=== PATIENT | female | born 1945 | race Caucasian/White ===

== ENCOUNTER → 2016-06-19 | Outpatient (CLI) | payer OTHER ==
[~2016-06-19] VITALS: Ht 162.6 cm; Wt 64.4 kg
[~2016-06-19] MED LIST: AMLO10TA2 PO; BREO1INH3 INH; IRON240T PO; LEVO125T3 PO; LIDOCAINE 2% INJ 100 MG/5 ML SDV (FOR ANES.) As Ordered ONE; LISI10TA2 PO; MULT1TAB10 PO; NS 1,000 ML IV ONE; PROPOFOL 200 MG/20 ML VIAL As Ordered ONE; VITA1CAP25 PO
--- NOTE | 2016-06-19 11:36 | ROOR ---
Patient Name: Yanci Salinas Procedure Date: 06/19/2016 11:23 AM Date of : 1945 Age: 70 Room: [facility], [facility]IN [facility] Gender: Female Note Status: Finalized Procedure: Upper GI endoscopy + Biopsies Indications: Iron deficiency anemia, Heme positive stool Providers: Milton Sam MD Referring MD: Shlomo Elizondo MD Requesting Provider: Medicines: Monitored Anesthesia Care Complications: No immediate complications. Procedure: Pre-Anesthesia Assessment: - The heart rate, respiratory rate, oxygen saturations, blood pressure, adequacy of pulmonary ventilation, and response to care were monitored throughout the procedure. The Endoscope was introduced through the mouth, and advanced to the second part of duodenum. The upper GI endoscopy was accomplished without difficulty. The patient tolerated the procedure well. Findings: The Z-line was regular and was found 35 cm from the incisors. Evidence of a gastric bypass was found. A gastric pouch with a small size was found. The staple line appeared intact. The gastrojejunal anastomosis was characterized by healthy appearing mucosa. Biopsies for histology were taken with a cold forceps for evaluation of celiac disease. The exam was otherwise without abnormality. Impression: - Z-line regular, 35 cm from the incisors. - Gastric bypass with a small-sized pouch and intact staple line. Gastrojejunal anastomosis characterized by healthy appearing mucosa. Biopsied. - The examination was otherwise normal. Recommendation: - Patient has a contact number available for emergencies. The signs and symptoms of potential delayed complications were discussed with the patient. Return to normal activities tomorrow. Written discharge instructions were provided to the patient. - Resume previous diet. - Discharge patient to home. - Continue present medications. - Await pathology results. - Telephone GI clinic for pathology results in 1 week. - Return to referring physician. - The findings and recommendations were discussed with the patient's family. - Check Portal Online for Path Results.([email or web address] Milton Sam MD Milton Sam MD 06/19/2016 11:36:06 AM This report has been signed electronically. Number of Addenda: 0 Note Initiated On: 06/19/2016 11:23 AM Estimated Blood Loss: Estimated blood loss: none.
--- NOTE | 2016-06-19 12:16 | ROOR ---
Patient Name: Yanci Salinas Procedure Date: 06/19/2016 11:23 AM Date of : 1945 Age: 70 Room: [facility] Gender: Female Note Status: Finalized Procedure: Colonoscopy to Cecum + Cold Snare Polypectomy + Hemoclips Indications: Heme positive stool, Iron deficiency anemia Providers: Milton Sam MD Referring MD: Shlomo Elizondo MD Requesting Provider: Medicines: Monitored Anesthesia Care Complications: No immediate complications. Procedure: Pre-Anesthesia Assessment: - The heart rate, respiratory rate, oxygen saturations, blood pressure, adequacy of pulmonary ventilation, and response to care were monitored throughout the procedure. The Colonoscope was introduced through the anus and advanced to the cecum, identified by appendiceal orifice and ileocecal valve. The colonoscopy was performed without difficulty. The patient tolerated the procedure well. The quality of the bowel preparation was excellent. Findings: The perianal and digital rectal examinations were normal. Non-bleeding internal hemorrhoids were found during retroflexion. The hemorrhoids were small and Grade I (internal hemorrhoids that do not prolapse). Scattered small-mouthed diverticula were found in the recto-sigmoid colon, sigmoid colon and descending colon. A medium polyp was found at 40 cm proximal to the anus. The polyp was sessile. The polyp was removed with a cold snare. Resection and retrieval were complete. To prevent bleeding after the polypectomy, two hemostatic clips were successfully placed (MR conditional). There was no bleeding at the end of the procedure. A medium polyp was found in the proximal ascending colon. The polyp was sessile. The polyp was removed with a cold snare. Resection and retrieval were complete. To prevent bleeding after the polypectomy, two hemostatic clips were successfully placed (MR conditional). There was no bleeding at the end of the procedure. Multiple sessile polyps were found in the mid transverse colon. The polyps were large in size. These polyps were removed with a cold snare. Resection and retrieval were complete. To prevent bleeding after the polypectomy, three hemostatic clips were successfully placed (MR conditional). There was no bleeding at the end of the procedure. A small polyp was found in the hepatic flexure. The polyp was sessile. The polyp was removed with a cold snare. Resection was complete, but the polyp tissue was not retrieved. The exam was otherwise without abnormality on direct and retroflexion views. Impression: - Non-bleeding internal hemorrhoids. - Diverticulosis in the recto-sigmoid colon, in the sigmoid colon and in the descending colon. - One medium polyp at 40 cm proximal to the anus, removed with a cold snare. Resected and retrieved. Clips (MR conditional) were placed. - One medium polyp in the proximal ascending colon, removed with a cold snare. Resected and retrieved. Clips (MR conditional) were placed. - Multiple large polyps in the mid transverse colon, removed with a cold snare. Resected and retrieved. Clips (MR conditional) were placed. - One small polyp at the hepatic flexure, removed with a cold snare. Complete resection. Polyp tissue not retrieved. - The examination was otherwise normal on direct and retroflexion views. - The exam was otherwise normal to the cecum. Recommendation: - Patient has a contact number available for emergencies. The signs and symptoms of potential delayed complications were discussed with the patient. Return to normal activities tomorrow. Written discharge instructions were provided to the patient. - High fiber diet. - Discharge patient to home. - Continue present medications. - Await pathology results. - Telephone GI clinic for pathology results in 1 week. - Repeat colonoscopy in 1 year for surveillance based on pathology results. - Return to referring physician. - Check Portal Online for Path Results.([email or web address] - The findings and recommendations were discussed with the patient's family. Milton Sam MD Milton Sam MD 06/19/2016 12:16:35 PM This report has been signed electronically. Number of Addenda: 0 Note Initiated On: 06/19/2016 11:23 AM Estimated Blood Loss: Estimated blood loss: none.
[2016-06-19 12:40] VITALS: BP 129/77
== END | disposition home or self-care (01) ==
LOC: M OPP 10:47
PROVIDERS: ATTEND Internal Medicine Gastroenterology
DX: D50.9 Iron deficiency anemia, unspecified (principal); K64.0 First degree hemorrhoids; K57.30 Diverticulosis of large intestine without perforation or abscess without bleeding; D12.5 Benign neoplasm of sigmoid colon; D12.2 Benign neoplasm of ascending colon; D12.3 Benign neoplasm of transverse colon; J44.9 Chronic obstructive pulmonary disease, unspecified; I10 Essential (primary) hypertension; J45.909 Unspecified asthma, uncomplicated; E03.9 Hypothyroidism, unspecified; Z98.0 Intestinal bypass and anastomosis status; Z87.891 Personal history of nicotine dependence; Z79.899 Other long term (current) drug therapy

== ENCOUNTER → 2016-07-11 | Outpatient (REF) | payer OTHER ==
[~2016-07-11] MED LIST changes: -LIDOCAINE 2% INJ 100 MG/5 ML SDV (FOR ANES.) As Ordered ONE; -NS 1,000 ML IV ONE; -PROPOFOL 200 MG/20 ML VIAL As Ordered ONE
[2016-07-11 13:19] LABS: ANION GAP 8 MEQ/L (8-16); BLOOD UREA NITROGEN 16 MG/DL (7-18); CALCIUM LEVEL 8.9 MG/DL (8.8-10.2); CARBON DIOXIDE LEVEL 30 MEQ/L (21-32); CHLORIDE LEVEL 101 MEQ/L (98-107); CREATININE FOR GFR 0.68 MG/DL (0.55-1.02); GLOMERULAR FILTRATION RATE > 60.0 (>39); GLUCOSE, FASTING 75 MG/DL (83-110); PERCENT SATURATION 65.6 % (13.2-37.4); SODIUM LEVEL 139 MEQ/L (136-145); TOTAL IRON BINDING CAPACITY 227 UG/DL (250-450)
[2016-07-11 13:23] LABS: BASO % 0.6 % (0.0-1.0); EOS # 0.3 K/mm3 (0.0-0.50); EOS % 4.2 % (0.0-3.0); LARGE UNSTAINED CELL # 0.1 K/mm3 (0.0-0.4); LARGE UNSTAINED CELL % 1.7 % (0.0-4.0); LYMPH # 1.8 K/mm3 (1.5-4.5); LYMPH % 24.4 % (24.0-44.0); MEAN CORPUSCULAR HEMOGLOBIN 31.5 pg (27.0-33.0); MEAN CORPUSCULAR HGB CONC 32.4 g/dl (32.0-36.5); MEAN CORPUSCULAR VOLUME 97.4 fl (80.0-96.0); MONO # 0.3 K/mm3 (0.0-0.8); NEUTROPHILS # 4.7 K/mm3 (1.8-7.7); NEUTROPHILS % 65.1 % (36.0-66.0); PLATELET COUNT, AUTOMATED 275 k/mm3 (150-450); RED CELL DISTRIBUTION WIDTH 12.4 % (11.5-14.5); RETIC HEMOGLOBIN CONTENT CHr 33.7 PG (24-36); RETICULOCYTE ABSOLUTE ADVIA212 87 x10(9)/L (17-77); WHITE BLOOD COUNT 7.2 K/mm3 (4.0-10.0)
== END ==
LOC: M SFHCPLAZ 10:04
PROVIDERS: ATTEND Family Medicine
DX: D50.9 Iron deficiency anemia, unspecified (principal); I10 Essential (primary) hypertension; E55.9 Vitamin D deficiency, unspecified

== ENCOUNTER → 2016-07-23 | Outpatient (REF) | payer OTHER ==
[2016-07-23 12:11] LABS: REASON FOR REVIEW COMPREHENSIVE REVIEW
[2016-07-23 12:44] LABS: FOLATE 23.9 NG/ML
[2016-07-23 13:09] LABS: ALBUMIN 2.8 GM/DL (3.2-5.2); ALBUMIN/GLOBULIN RATIO 0.97 (1.00-1.93); BILIRUBIN,DIRECT 0.2 MG/DL (0.0-0.2); BILIRUBIN,TOTAL 0.5 MG/DL (0.2-1.0); FREE T4 1.28 NG/DL (0.76-1.46); TOTAL PROTEIN 5.7 GM/DL (6.4-8.2)
== END ==
LOC: M SFHCPLAZ 09:49
PROVIDERS: ATTEND Family Medicine
DX: E03.9 Hypothyroidism, unspecified (principal); D75.89 Other specified diseases of blood and blood-forming organs; Z98.890 Other specified postprocedural states

== ENCOUNTER → 2017-07-31 | Outpatient (REF) | payer OTHER ==
[2017-08-01 14:23] LABS: GAMMA GLUTAMYLTRANSPEPTIDASE 75 U/L (5-55)
== END ==
LOC: M LAB REF 13:21
DX: R94.5 Abnormal results of liver function studies (principal)

== ENCOUNTER → 2017-10-31 | Outpatient (CLI) | payer OTHER ==
[2017-10-31 17:34] LABS: ALBUMIN 2.9 GM/DL (3.2-5.2); ALBUMIN/GLOBULIN RATIO 0.91 (1.00-1.93); ALKALINE PHOSPHATASE 152 U/L (45-117); ALT/SGPT 70 U/L (12-78); ANION GAP 6 MEQ/L (8-16); AST/SGOT 43 U/L (7-37); BILIRUBIN,DIRECT 0.2 MG/DL (0.0-0.2); BILIRUBIN,TOTAL 0.4 MG/DL (0.2-1.0); BLOOD UREA NITROGEN 23 MG/DL (7-18); CALCIUM LEVEL 8.7 MG/DL (8.8-10.2); CARBON DIOXIDE LEVEL 29 MEQ/L (21-32); CHLORIDE LEVEL 110 MEQ/L (98-107); CREATININE FOR GFR 0.47 MG/DL (0.55-1.30); GLOMERULAR FILTRATION RATE > 60.0 (>39); GLUCOSE, FASTING 75 MG/DL (70-100); POTASSIUM SERUM 4.9 MEQ/L (3.5-5.1); SODIUM LEVEL 145 MEQ/L (136-145); TOTAL PROTEIN 6.1 GM/DL (6.4-8.2)
== END ==
LOC: M WUC 15:24
DX: R94.5 Abnormal results of liver function studies (principal); E03.9 Hypothyroidism, unspecified; I10 Essential (primary) hypertension
CPT/HCPCS: 84443

== ENCOUNTER → 2018-02-11 | Outpatient (REF) | payer OTHER ==
[~2018-02-11] MED LIST changes: -AMLO10TA2 PO; +AMLO10TA5 PO; -LEVO125T3 PO; +LEVO125T4 PO
== END ==
LOC: M LAB REF 11:50
PROVIDERS: ATTEND Nurse Practitioner Family
DX: E03.9 Hypothyroidism, unspecified (principal)

== ENCOUNTER 2019-07-05 12:18 | Emergency (ER) | payer BC, OTHER ==
[~2019-07-05] VITALS: Ht 162.6 cm; Wt 65.1 kg
[~2019-07-05 12:18] MED LIST changes: +LISI10TA15 PO; -LISI10TA2 PO
[2019-07-05 14:17] LABS: BASO % 0.6 % (0.0-1.0); EOS # 0.2 10^3/uL (0.0-0.5); EOS % 2.2 % (0.0-3.0); HEMATOCRIT 34.5 % (36.0-47.0); HEMOGLOBIN 11.1 g/dl (12.0-15.5); LYMPH # 1.7 10^3/uL (1.5-5.0); LYMPH % 25.9 % (24.0-44.0); MEAN CORPUSCULAR HGB CONC 32.2 g/dl (32.0-36.5); MEAN CORPUSCULAR VOLUME 102.7 fl (80.0-96.0); MONO # 0.5 10^3/uL (0.0-0.8); MONO % 6.8 % (0.0-5.0); NEUTROPHILS # 4.3 10^3/uL (1.5-8.5); NEUTROPHILS % 64.2 % (36.0-66.0); PLATELET COUNT, AUTOMATED 288 10^3/uL (150-450); RED BLOOD COUNT 3.36 10^6/uL (4.00-5.40); WHITE BLOOD COUNT 6.7 10^3/uL (4.0-10.0)
--- NOTE | 2019-07-05 14:23 | REP ---
Clinical: Lower extremity edema . Comparison: None . Technique: PA and lateral. Findings: The mediastinum and cardiac silhouette are normal. The lung erickson demonstrate chronic-appearing interstitial changes without acute consolidation, effusion, or pneumothorax. The skeletal structures are intact and normal. Impression: 1. No acute cardiopulmonary process. Electronically Signed by Gregory Figueroa MD 07/05/2019 02:14 P
[2019-07-05 14:47] LABS: BLOOD UREA NITROGEN 23 MG/DL (7-18); CALCIUM LEVEL 8.1 MG/DL (8.8-10.2); CARBON DIOXIDE LEVEL 27 MEQ/L (21-32); CHLORIDE LEVEL 104 MEQ/L (98-107); CK-MB VALUE MASS 1.3 NG/ML (<3.6); CPK CREATINE PHOSPHOKINASE 47 U/L (26-192); CREATININE FOR GFR 0.73 MG/DL (0.55-1.30); FREE T4 0.91 NG/DL (0.76-1.46); GLOMERULAR FILTRATION RATE > 60.0 (>39); GLUCOSE, FASTING 92 MG/DL (70-100); MB/CK RELATIVE INDEX 2.77 (< OR =4); NT-PRO BNP 128 PG/ML (<125); POTASSIUM SERUM 3.8 MEQ/L (3.5-5.1); SODIUM LEVEL 139 MEQ/L (136-145); TROPONIN I < 0.02 NG/ML (< 0.10)
--- NOTE | 2019-07-05 15:22 | ECGEPIP ---
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
[2019-07-05 15:43] VITALS: BP 136/75
--- NOTE | 2019-07-05 16:00 | REP ---
Clinical: Left lower extremity pain and swelling . Technique: Corbett scale and color Doppler evaluation using linear high frequency transducer. Findings: Ultrasound examination of the left lower extremity deep venous structures from the common femoral vein to the popliteal vein demonstrates normal compressibility flow and wave patterns in response to respiration and augmentation. There is no evidence for deep venous thrombosis. Impression: No evidence for deep venous thrombosis. Electronically Signed by Gregory Figueroa MD 07/05/2019 03:52 P
== END 2019-07-05 15:47 | disposition home or self-care (01) ==
LOC: M ED 12:18
DX: M79.89 Other specified soft tissue disorders (principal); L55.9 Sunburn, unspecified; I10 Essential (primary) hypertension; E78.00 Pure hypercholesterolemia, unspecified; J44.9 Chronic obstructive pulmonary disease, unspecified; E03.9 Hypothyroidism, unspecified; Z79.899 Other long term (current) drug therapy; Z98.84 Bariatric surgery status

== ENCOUNTER 2020-06-09 07:45 | Emergency (ER) | payer BC ==
[~2020-06-09] VITALS: Ht 162.6 cm; Wt 66.3 kg
[~2020-06-09 07:45] MED LIST changes: -AMLO10TA5 PO; +AMLO1TAB25 PO
[2020-06-09] MEDS ORDERED: POTA1TAB23 PO (08:06)
[2020-06-09] MEDS ORDERED: LEVO88TA3 PO (08:06)
--- NOTE | 2020-06-09 08:34 | REP ---
INDICATION: injury. COMPARISON: Comparison left hand radiographs are from June 28, 2005.. TECHNIQUE: Four views of the left wrist are obtained. FINDINGS: There is marked diffuse osteoporosis. A comminuted and somewhat impacted distal radial metaphyseal fracture is seen with apex volar angulation and minimal dorsal displacement. There is an associated slightly impacted fracture of the distal ulna. Vascular calcification is seen. No carpal fracture is observed. IMPRESSION: Affected and angulated fracture of the distal radial metaphysis. Associated minimally impacted fracture of the distal ulnar metaphysis. marked diffuse osteopenia. <Electronically signed by Toni Copeland > 06/09/20 [id number]
[2020-06-09] MEDS ORDERED: NS 1,000 ML IV SCH ×2 (10:00→15:10)
[2020-06-09] MEDS ORDERED: MORPHINE 2 MG/ML 1ML VIAL (J2270) IV ONE ×2 (10:00→15:25)
[2020-06-09] MEDS ORDERED: propofoL 200 MG/20 ML VIAL IV PRN (15:10)
[2020-06-09] MEDS ORDERED: ONDANSETRON 4MG/2ML VIAL IV ONE (15:10)
[2020-06-09] MEDS ORDERED: LIDOCAINE 1% MDV 20ML VIAL SC ONE (16:00)
[2020-06-09] MEDS ORDERED: MIRA3350 PO (16:36)
[2020-06-09] MEDS ORDERED: HYDR-3713 PO (16:36)
[2020-06-09 17:00] VITALS: BP 169/74
--- NOTE | 2020-06-09 17:26 | REP ---
INDICATION: fracture COMPARISON: 06/09/2020 at 8:03 a.m. TECHNIQUE: Multiple intraoperative fluoroscopic images using portable C-arm technique FINDINGS: Images demonstrate patient to be status post closed reduction and casting for comminuted distal radial fracture. Further evaluation is limited due to technique and cast material. Total fluoroscopic time 71 seconds. IMPRESSION: Status post satisfactory closed reduction period. <Electronically signed by Gregory Figueroa > 06/09/20 [id number]
--- NOTE | 2020-06-09 18:06 | ER ---
ER CONSULTATION DATE: 06/09/2020 TIME: 0330 p.m. CONSULTING SERVICE: Orthopedics. CONSULTING PHYSICIAN: Trent Romano MD. HISTORY OF PRESENT ILLNESS: This is a 74-year-old female who sustained a ground-level fall on the morning of 06/09/2020, while walking. The patient sustained a closed left distal radius fracture with mild comminution. She also sustained a superficial laceration to the volar aspect of her left wrist. She presented to [facility] for further evaluation and treatment. Orthopedic surgery was consulted for evaluation and treatment. PAST MEDICAL HISTORY: Hypertension. PAST SURGICAL HISTORY: 1. Gastric bypass. 2. Hysterectomy. ALLERGIES: Denies. CURRENT MEDICATIONS: 1. Beta-janelle. 2. Vitamin D. SOCIAL HISTORY: Social drinker. Non-IV drug user. Nonsmoker. REVIEW OF SYSTEMS: A 14-point review of systems was negative unless otherwise described in the HPI above. PHYSICAL EXAMINATION: Alert and oriented to person, time, and place. Left upper extremity the patient had an obvious deformity about the left distal radius with dorsal deformity appreciated of the wrist. She had a 1 cm x 5 mm volar laceration, which did not probe deep to the fascia, which was irrigated and debrided. She also had a superficial skin sloughing about the dorsal aspect of her left wrist. She had brisk capillary refill to the digits. She had 2+ radial and ulnar pulse. She had 5/5 motor strength to the musculature of the musculocutaneous, axillary, radial, median, and ulnar distributions. She had sensation intact to light touch to the musculocutaneous, axillary, radial, median, and ulnar nerve distributions. IMAGING DATA: X-rays of her left wrist demonstrate a distal radius fracture with dorsal displacement apex volar approximately 3 cm from the joint line. She had minimal comminution of the distal radius with likely extension into the intraarticular joint, likely intraarticular extension. She had loss of radial height and radial inclination. Post-reduction radiographs demonstrated yazdanism of radial height inclination and 0 degrees of volar tilt. IMPRESSION: A 74-year-old female with a reduced left distal radius fracture placed in a well-padded L&U splint with a three-point mold. PLAN: The patient sustained a left distal radius fracture that was closed with a volar laceration. Her volar laceration was cleaned by the emergency provider using normal saline and Betadine-soaked saline. The patient also sustained a shearing skin injury to the dorsal aspect of her left forearm, which was Steri-Striped. The patient's left distal radius was close reduced and placed in a well-padded sugar-tong splint using fluoroscopy. The patient was consented for the aforementioned procedure. The patient has a very nice reduction of the left distal radius with yazdanism of radial height, inclination, and 0 degrees of volar tilt. The patient will remain in the sugar-tong until she returns to the clinic on 06/20/2020, at [facility]. At that point in time, we will remove the elbow padding of the sugar-tong splint and over-wrap with fiberglass in order to maintain the reduction. She will remain in her over-wrapped splint for a total of six weeks or until radiographic clinical evidence of healing. The patient tolerated the procedure well and was more comfortable after the reduction. Of note, she did receive a hematoma block with 10 mL of Lidocaine. The patient will follow-up on 06/20/2020, at the [facility] and she will see myself, Trent Romano MD.
== END 2020-06-09 17:27 | disposition home or self-care (01) ==
LOC: M ED 07:45
DX: S52.502A Unspecified fracture of the lower end of left radius, initial encounter for closed fracture (principal); S52.602A Unspecified fracture of lower end of left ulna, initial encounter for closed fracture; W01.0XXA Fall on same level from slipping, tripping and stumbling without subsequent striking against object, initial encounter; Y92.014 Private driveway to single-family (private) house as the place of occurrence of the external cause; I10 Essential (primary) hypertension; J44.9 Chronic obstructive pulmonary disease, unspecified; E78.5 Hyperlipidemia, unspecified; E03.9 Hypothyroidism, unspecified; Z98.84 Bariatric surgery status; Z79.899 Other long term (current) drug therapy; Z79.890 Hormone replacement therapy
CPT/HCPCS: 25565; 73100; 73110; 93041; 94760; 96361; 96374; 96376; 99284; J2270; J2405

== ENCOUNTER → 2020-06-20 | Outpatient (CLI) | payer BC ==
[~2020-06-20] MED LIST changes: +HYDR-3713 PO; +LEVO88TA3 PO; +MIRA3350 PO; +POTA1TAB23 PO
--- NOTE | 2020-06-21 07:22 | REP ---
INDICATION: PAIN. COMPARISON: 06/09/2020 TECHNIQUE: AP, lateral, bilateral oblique views of the left wrist. FINDINGS: Fracture of the distal radial metaphysis is noted. Further evaluation is limited due to overlying cast material. IMPRESSION: Distal radial metaphyseal fracture noted. <Electronically signed by Gregory Figueroa > 06/21/20 0718
--- NOTE | 2020-06-21 07:39 | REP ---
INDICATION: PAIN. COMPARISON: 06/09/2020, 06/20/2020 TECHNIQUE: AP and lateral views of the left forearm FINDINGS: Evaluation is limited due to overlying cast material. Fracture of the distal radial and ulnar metaphyses suggested. IMPRESSION: Limited by overlying cast material. <Electronically signed by Gregory Figueroa > 06/21/20 0717
== END ==
LOC: M SOG 14:23
PROVIDERS: ATTEND Orthopaedic Surgery
DX: S52.502A Unspecified fracture of the lower end of left radius, initial encounter for closed fracture (principal); X58.XXXA Exposure to other specified factors, initial encounter; Y92.9 Unspecified place or not applicable; Y99.9 Unspecified external cause status; M25.532 Pain in left wrist

== ENCOUNTER → 2020-07-20 | Outpatient (CLI) | payer BC ==
--- NOTE | 2020-07-21 03:28 | REP ---
INDICATION: UNSP FX LOW END LT RAD, SUBS FOR CLOSED FX W ROUTINE HEAL. COMPARISON: 06/20/2020 TECHNIQUE: AP, lateral, bilateral oblique views of the left wrist FINDINGS: Comminuted intra-articular fracture of the distal radius and ulnar styloid fracture are again noted. Some elements of periosteal reaction and callus formation are identified suggesting healing process. Overlying soft tissue swelling noted. Underlying age-related degenerative changes noted throughout the rest of the examination. IMPRESSION: Continued evidence for comminuted intra-articular distal radius fracture and ulnar styloid fracture. Some element of healing suggested. <Electronically signed by Gregory Figueroa > 07/21/20 0322
--- NOTE | 2020-07-21 03:41 | REP ---
INDICATION: UNSP FX LOW END LT RAD, SUBS FOR CLOSED FX W ROUTINE HEAL. COMPARISON: 06/20/2020 TECHNIQUE: AP and lateral views of the left forearm FINDINGS: Nonacute fractures of the distal radial metaphysis and ulnar styloid demonstrate callus formation suggesting elements of healing. Osteopenia and degenerative changes to the remainder of the examination without further acute fracture or dislocation identified. IMPRESSION: Healing fractures of the distal radius and ulna. <Electronically signed by Gregory Figueroa > 07/21/20 [id number]
== END ==
LOC: M SOG 14:38
PROVIDERS: ATTEND Orthopaedic Surgery
DX: S52.502D Unspecified fracture of the lower end of left radius, subsequent encounter for closed fracture with routine healing (principal); Y92.9 Unspecified place or not applicable; Y93.9 Activity, unspecified; Y99.9 Unspecified external cause status

== ENCOUNTER → 2020-08-31 | Outpatient (CLI) | payer BC ==
--- NOTE | 2020-08-31 10:49 | REP ---
INDICATION: FX LOW END LEFT RADIUS. COMPARISON: 07/20/2020 as well as other prior exams. TECHNIQUE: Four views left wrist. FINDINGS: The previously noted comminuted intra-articular fracture of the distal radius demonstrates increased healing callus formation. There is no change in alignment. The distal ulnar fracture also demonstrates increased healing callus formation with no change in alignment. Mild scattered degenerative changes are again noted. There are vascular calcifications in the soft tissues. IMPRESSION: Advanced healing of distal radial and ulnar fractures, with increased healing callus formation compared to the prior study. No change in alignment. <Electronically signed by Lloyd Corbett > 08/31/20 1048
== END ==
LOC: M SOG 10:26
PROVIDERS: ATTEND Orthopaedic Surgery
DX: S52.502D Unspecified fracture of the lower end of left radius, subsequent encounter for closed fracture with routine healing (principal)

== ENCOUNTER → 2021-12-07 | Outpatient (CLI) | payer BC ==
[~2021-12-07] MED LIST changes: -LISI10TA15 PO; +LISI10TA24 PO
== END ==
LOC: M WUC 09:40
PROVIDERS: ATTEND Registered Nurse
DX: M47.819 Spondylosis without myelopathy or radiculopathy, site unspecified (principal)

== ENCOUNTER → 2022-02-26 | Outpatient (CLI) | payer BC | LOC: M WHC 09:18 | PROVIDERS: ATTEND Internal Medicine | DX: M85.851 Other specified disorders of bone density and structure, right thigh (principal); M85.852 Other specified disorders of bone density and structure, left thigh ==

== ENCOUNTER → 2023-04-03 | Outpatient (CLI) | payer BC ==
[2023-04-03 14:46] LABS: BASO # 0.1 10^3/uL (0.0-0.2); BASO % 0.6 % (0.0-1.0); EOS # 0.7 10^3/uL (0.0-0.5); EOS % 7.9 % (0.0-3.0); HEMATOCRIT 35.2 % (36.0-47.0); HEMOGLOBIN 10.9 g/dl (12.0-15.5); LYMPH # 3.2 10^3/uL (1.5-5.0); LYMPH % 35.6 % (24.0-44.0); MEAN CORPUSCULAR HEMOGLOBIN 30.7 pg (27.0-33.0); MEAN CORPUSCULAR VOLUME 99.2 fl (80.0-96.0); MONO # 0.6 10^3/uL (0.0-0.8); NEUTROPHILS # 4.3 10^3/uL (1.5-8.5); NEUTROPHILS % 48.7 % (36.0-66.0); PLATELET COUNT, AUTOMATED 287 10^3/uL (150-450); RED BLOOD COUNT 3.55 10^6/uL (4.00-5.40); WHITE BLOOD COUNT 8.9 10^3/uL (4.0-10.0)
[2023-04-03 15:12] LABS: IRON (FE) 53 UG/DL (50-170); PERCENT SATURATION 24.3 % (13.2-45.0); TOTAL IRON BINDING CAPACITY 218 UG/DL (250-425)
[2023-04-03 15:13] LABS: ALKALINE PHOSPHATASE 178 U/L (46-116); ALT/SGPT 67 U/L (7.0-40); AST/SGOT 53 U/L (<34); BILIRUBIN,TOTAL 0.3 MG/DL (0.3-1.2); BLOOD UREA NITROGEN 32 MG/DL (9-23); CALCIUM LEVEL 8.4 MG/DL (8.3-10.6); CARBON DIOXIDE LEVEL 26 MMOL/L (20-31); CHLORIDE LEVEL 106 MMOL/L (98-107); CREATININE FOR GFR 0.91 MG/DL (0.55-1.30); GLOMERULAR FILTRATION RATE > 60.0 (>39); GLUCOSE, FASTING 86 MG/DL (74-106); POTASSIUM SERUM 4.2 MMOL/L (3.5-5.1); SODIUM LEVEL 137 MMOL/L (136-145)
[2023-04-03 15:16] LABS: THYROXINE (T4) 5.3 UG/DL (4.5-10.9)
[2023-04-03 15:17] LABS: FREE THYROXINE INDEX 1.7 % (1.3-4.8); T UPTAKE 32.8 % (22.5-37.0); THYROID STIMULATING HORMONE 1.707 uIU/ML (0.55-4.78)
== END ==
LOC: M LAB 13:49
PROVIDERS: ATTEND Nurse Practitioner Family
DX: L29.9 Pruritus, unspecified (principal)

== ENCOUNTER → 2023-05-02 | Outpatient (REF) | payer BC | LOC: M SFHCPLAZ 08:41 | PROVIDERS: ATTEND Nurse Practitioner Family | DX: L30.8 Other specified dermatitis (principal) ==

== ENCOUNTER → 2023-09-11 | Outpatient (CLI) | payer BC | LOC: M WUC 15:30 | PROVIDERS: ATTEND Nurse Practitioner Family | DX: M25.512 Pain in left shoulder (principal); M54.50 Low back pain, unspecified; W01.10XA Fall on same level from slipping, tripping and stumbling with subsequent striking against unspecified object, initial encounter ==

== ENCOUNTER → 2023-12-24 | Outpatient (REF) | payer BC ==
[2023-12-24 14:26] LABS: PERCENT SATURATION 58.9 % (13.2-45.0)
== END ==
LOC: M LAB REF 13:26
PROVIDERS: ATTEND Physician Assistant Medical
DX: D50.9 Iron deficiency anemia, unspecified (principal)

== ENCOUNTER → 2024-06-30 | Outpatient (CLI) | payer BC | LOC: M WUC 13:30 | PROVIDERS: ATTEND Physician Assistant Medical | DX: M85.812 Other specified disorders of bone density and structure, left shoulder (principal) ==

== ENCOUNTER 2024-11-20 08:39 | Inpatient (IN) | payer MEDICARE, BC ==
[~2024-11-20] VITALS: Ht 162.6 cm; Wt 70.1 kg
[2024-11-20] MEDS ORDERED: MORPHINE 4 MG/ML 1 ML VIAL IV PRN (08:55)
[2024-11-20 09:15] LABS: BASO # 0.1 10^3/uL (0.0-0.2); BASO % 0.8 % (0.0-1.0); EOS # 1.3 10^3/uL (0.0-0.5); EOS % 12.7 % (0.0-3.0); LYMPH # 2.2 10^3/uL (1.5-5.0); LYMPH % 21.6 % (24.0-44.0); MONO # 1.0 10^3/uL (0.0-0.8); MONO % 10.2 % (2.0-8.0); NEUTROPHILS # 5.5 10^3/uL (1.5-8.5); NEUTROPHILS % 54.4 % (36.0-66.0); PLATELET COUNT, AUTOMATED 230 10^3/uL (150-450)
[2024-11-20 09:25] LABS: INR 0.93
[2024-11-20 09:40] LABS: ALT/SGPT 27.0 U/L (7.0-40); AST/SGOT 24.0 U/L (<34); CALCIUM LEVEL 8.0 MG/DL (8.3-10.6); CARBON DIOXIDE LEVEL 24.0 MMOL/L (20-31); CHLORIDE LEVEL 110.0 MMOL/L (98-107); CREATININE FOR GFR 0.71 MG/DL (0.55-1.30); GLOMERULAR FILTRATION RATE 86.4 (>39); POTASSIUM SERUM 3.5 MMOL/L (3.5-5.1); SODIUM LEVEL 143.0 MMOL/L (136-145)
[2024-11-20] MEDS ORDERED: LEVO75TA4 PO (10:27)
[2024-11-20] MEDS ORDERED: MULTTAB61 PO (10:27)
[2024-11-20] MEDS ORDERED: DIPH-448 PO (10:27)
[2024-11-20] MEDS ORDERED: HYDR12.55 PO (10:27)
[2024-11-20] MEDS ORDERED: DECA1CAP2 PO (10:27)
[2024-11-20] MEDS ORDERED: ALBU8.5H INH (10:27)
[2024-11-20] MEDS ORDERED: TRAZ-252 PO (10:27)
[2024-11-20] MEDS ORDERED: LEXA1TAB PO (10:27)
[2024-11-20] MEDS ORDERED: HOME MED LIST COMPLETE! XX SCH (10:30)
[2024-11-20] MEDS: LIDOCAINE 5% PATCH TD ONE (11:59)
[2024-11-20] MEDS: NS (Normal Saline) 0.9% 1,000 ML IV ONE (12:53)
[2024-11-20] MEDS: ACETAMINOPHEN *IV* 1,000 MG in IV 1 EA IV ONE (13:06)
[2024-11-20] MEDS: NS (Normal Saline) 0.9% 1,000 ML IV SCH (14:27)
[2024-11-20] MEDS: LIDOCAINE 5% PATCH TD STA (15:39)
[2024-11-20 17:13] VITALS: BP 143/74; TEMP 97.2; O2SAT 97
[2024-11-20] MEDS: MORPHINE 4 MG/ML 1 ML VIAL IV PRN ×2 (18:34→21:05)
[2024-11-20 20:00] VITALS: BP 125/83; TEMP 97.5; O2SAT 98
[2024-11-20] MEDS: traZODone 25MG PER 1/2 TABLET PO ONE (21:05)
[2024-11-21] VITALS (9 sets, daily range): BP systolic 90–142; BP diastolic 51–71; TEMP 96.4–98.8; O2SAT 89–94
[2024-11-21] MEDS: MORPHINE 4 MG/ML 1 ML VIAL IV ONE (05:10)
[2024-11-21] MEDS: LIDOCAINE 5% PATCH TD SCH (08:16)
[2024-11-21] MEDS ORDERED: ROCURONIUM BROMIDE 50MG/5ML VIAL As Ordered ONE (08:34)
[2024-11-21] MEDS ORDERED: LIDOCAINE 2% 100 MG/5 ML SDV (FOR ANES.) As Ordered ONE (08:35)
[2024-11-21 08:55] LABS: CALCIUM LEVEL 7.5 MG/DL (8.3-10.6); CARBON DIOXIDE LEVEL 24 MMOL/L (20-31); CHLORIDE LEVEL 110 MMOL/L (98-107); CREATININE FOR GFR 0.56 MG/DL (0.55-1.30); GLOMERULAR FILTRATION RATE > 90.0 (>39); MAGNESIUM LEVEL 1.9 MG/DL (1.8-2.4); POTASSIUM SERUM 3.3 MMOL/L (3.5-5.1); SODIUM LEVEL 146 MMOL/L (136-145)
[2024-11-21] MEDS ORDERED: dexAMETHasone 4 MG/ML 1 ML VIAL As Ordered ONE (10:44)
[2024-11-21] MEDS ORDERED: ONDANSETRON 4MG 2ML VIAL As Ordered ONE (10:44)
[2024-11-21] MEDS: TRANEXAMIC ACID 100 MG/ML 10ML VIAL As Ordered ONE (10:45)
[2024-11-21] MEDS ORDERED: HYDROmorphone HCL 2 MG/ML 1 ML VIAL As Ordered ONE (11:04)
[2024-11-21] MEDS ORDERED: ACETAMINOPHEN 1000MG/100ML IV BAG As Ordered ONE (11:05)
[2024-11-21] MEDS: HYDROMORPHONE HCL 0.5 MG/0.5 ML SYRINGE IV PRN (12:18)
[2024-11-21] MEDS: ONDANSETRON 4MG 2ML VIAL IV PRN (12:18)
[2024-11-21] MEDS ORDERED: IPRATROPIUM 0.5 MG/ALBUTEROL 2.5 MG INH SOL UD 3 ML NEB PRN (16:20)
[2024-11-21] MEDS: NS (Normal Saline) 0.9% 1,000 ML IV SCH (17:16)
[2024-11-21] MEDS: ceFAZolin SODIUM 2 GM in DEXTROSE 5% (D5W) ADV/MINI-BAG 50 ML IV SCH (17:16)
[2024-11-21] MEDS: KCL 10MEQ/100ML SWI (KRUN) 10 MEQ in IV 1 EA IV SCH (18:01)
[2024-11-21] MEDS: SYMBICORT 160/4.5MCG INHALER 6GM INH SCH (19:25)
[2024-11-21] MEDS: POTASSIUM CHLORIDE 10MEQ SR TABLET PO SCH (20:00)
[2024-11-21] MEDS: ENOXAPARIN 40 MG/0.4 ML SYRINGE (J1650 PER 10MG) SC SCH (20:00)
[2024-11-22] VITALS (13 sets, daily range): BP systolic 121–146; BP diastolic 64–78; TEMP 96.8–98.4; O2SAT 90–97
[2024-11-22] MEDS: LEVOTHYROXINE 75 MCG TABLET (0.075 MG) PO SCH (05:55)
[2024-11-22 07:11] LABS: CALCIUM LEVEL 7.3 MG/DL (8.3-10.6); CARBON DIOXIDE LEVEL 24.0 MMOL/L (20-31); CHLORIDE LEVEL 106.0 MMOL/L (98-107); CREATININE FOR GFR 0.65 MG/DL (0.55-1.30); GLOMERULAR FILTRATION RATE 89.5 (>39); MAGNESIUM LEVEL 1.8 MG/DL (1.8-2.4); POTASSIUM SERUM 3.6 MMOL/L (3.5-5.1); SODIUM LEVEL 140.0 MMOL/L (136-145)
[2024-11-22] MEDS: ESCITALOPRAM OXALATE 10 MG TABLET PO SCH (09:22)
[2024-11-22] MEDS: PERCOCET 5MG/325MG TAB PO PRN (15:59)
[2024-11-22] MEDS: traZODone 50 MG TAB PO PRN (20:31)
[2024-11-22 21:53] LABS: IRON (FE) 120.0 UG/DL (50-170); PERCENT SATURATION 53.1 % (13.2-45.0)
[2024-11-23 00:41] VITALS: BP 137/78; TEMP 97.2; O2SAT 96
[2024-11-23 03:46] VITALS: BP 135/77; TEMP 97.3; O2SAT 95
[2024-11-23 07:35] LABS: CALCIUM LEVEL 7.8 MG/DL (8.3-10.6); CARBON DIOXIDE LEVEL 25 MMOL/L (20-31); CHLORIDE LEVEL 107 MMOL/L (98-107); CREATININE FOR GFR 0.51 MG/DL (0.55-1.30); GLOMERULAR FILTRATION RATE > 90.0 (>39); MAGNESIUM LEVEL 1.9 MG/DL (1.8-2.4); POTASSIUM SERUM 3.8 MMOL/L (3.5-5.1); SODIUM LEVEL 142 MMOL/L (136-145)
[2024-11-23] MEDS: VITAMIN D 50,000 UNITS CAPSULE (ERGOCALCIFEROL 1.25MG) PO SCH (08:15)
[2024-11-23 12:00] VITALS: BP 130/74; TEMP 97.9; O2SAT 95
[2024-11-23] MEDS ORDERED: ECOT81TA5 PO (13:38)
== END 2024-11-23 14:30 | DRG 481 ==
LOC: EDBD 08:39 → M ED 08:39 → M ED INP 11:27 → M MSPAV 16:46
PROVIDERS: ADMIT Student in an Organized Health Care Education/Training Program; ATTEND Student in an Organized Health Care Education/Training Program
PROC: 0PSHXZZ Reposition Right Radius, External Approach (ICD-10-PCS; 2024-11-21)
PROC: 0QS606Z Reposition Right Upper Femur with Intramedullary Internal Fixation Device, Open Approach (ICD-10-PCS; principal; 2024-11-21 08:00)
PROC: 30233N1 Transfusion of Nonautologous Red Blood Cells into Peripheral Vein, Percutaneous Approach (ICD-10-PCS; 2024-11-22)
DX: S72.141A Displaced intertrochanteric fracture of right femur, initial encounter for closed fracture (principal); D62 Acute posthemorrhagic anemia; S52.501A Unspecified fracture of the lower end of right radius, initial encounter for closed fracture; I10 Essential (primary) hypertension; J44.9 Chronic obstructive pulmonary disease, unspecified; E03.9 Hypothyroidism, unspecified; M85.80 Other specified disorders of bone density and structure, unspecified site; E55.9 Vitamin D deficiency, unspecified; W18.30XA Fall on same level, unspecified, initial encounter; Y92.009 Unspecified place in unspecified non-institutional (private) residence as the place of occurrence of the external cause; Z98.41 Cataract extraction status, right eye; Z98.42 Cataract extraction status, left eye; Z98.84 Bariatric surgery status; Z79.890 Hormone replacement therapy; Z79.899 Other long term (current) drug therapy

== ENCOUNTER 2024-11-23 12:20 | Inpatient (IN) | payer MEDICARE, BC ==
[~2024-11-23] VITALS: Ht 162.6 cm; Wt 65.9 kg
[~2024-11-23 12:20] MED LIST changes: +ALBU8.5H INH; +DECA1CAP2 PO; +DIPH-448 PO; +HYDR12.55 PO; +LEVO75TA4 PO; +LEXA1TAB PO; +MULTTAB61 PO; +TRAZ-252 PO
[2024-11-23] MEDS ORDERED: ONDANSETRON 4MG ORAL DISINTEGRATING TAB PO PRN ×2 (12:40)
[2024-11-23] MEDS ORDERED: ALBUTEROL 90 MCG/ACT 8 GM HFA INHALER INH PRN (12:40)
[2024-11-23] MEDS ORDERED: SIMETHICONE 80MG CHEW TAB PO PRN (12:40)
[2024-11-23] MEDS: ACETAMINOPHEN 500 MG TAB PO SCH (13:00)
[2024-11-23] MEDS ORDERED: ECOT81TA5 PO (13:38)
[2024-11-23 14:41] VITALS: BP 125/60; TEMP 98.2; O2SAT 90
[2024-11-23 20:00] VITALS: BP 157/65; TEMP 97.5; O2SAT 94
[2024-11-23] MEDS: SYMBICORT 160/4.5MCG INHALER 6GM INH SCH (20:36)
[2024-11-23] MEDS: DOCUSATE SODIUM 100 MG CAPSULE PO SCH (20:45)
[2024-11-23] MEDS: traZODone 50 MG TAB PO SCH (20:45)
[2024-11-23] MEDS: SENNA 8.6 MG TAB PO SCH (20:45)
[2024-11-23] MEDS: POTASSIUM CHLORIDE 10MEQ SR TABLET PO SCH (20:46)
[2024-11-24 04:00] VITALS: BP 123/61; TEMP 97.5; O2SAT 93
[2024-11-24] MEDS: LEVOTHYROXINE 75 MCG TABLET (0.075 MG) PO SCH (05:18)
[2024-11-24 06:25] LABS: BASO # 0.1 10^3/uL (0.0-0.2); BASO % 0.5 % (0.0-1.0); EOS # 0.5 10^3/uL (0.0-0.5); EOS % 5.5 % (0.0-3.0); LYMPH # 2.3 10^3/uL (1.5-5.0); LYMPH % 22.8 % (24.0-44.0); MONO # 1.0 10^3/uL (0.0-0.8); MONO % 10.4 % (2.0-8.0); NEUTROPHILS # 6.0 10^3/uL (1.5-8.5); NEUTROPHILS % 60.5 % (36.0-66.0); PLATELET COUNT, AUTOMATED 190 10^3/uL (150-450)
[2024-11-24 06:59] LABS: ALT/SGPT 10 U/L (7.0-40); AST/SGOT 26 U/L (<34); CALCIUM LEVEL 8.1 MG/DL (8.3-10.6); CARBON DIOXIDE LEVEL 27 MMOL/L (20-31); CHLORIDE LEVEL 105 MMOL/L (98-107); CREATININE FOR GFR 0.51 MG/DL (0.55-1.30); GLOMERULAR FILTRATION RATE > 90.0 (>39); POTASSIUM SERUM 4.0 MMOL/L (3.5-5.1); SODIUM LEVEL 142 MMOL/L (136-145)
[2024-11-24] MEDS: ESCITALOPRAM OXALATE 10 MG TABLET PO SCH (08:37)
[2024-11-24] MEDS: OMEPRAZOLE 20MG CAP PO SCH (08:38)
[2024-11-24 12:00] VITALS: BP 116/61; TEMP 96.6; O2SAT 95
[2024-11-24] MEDS: ASPIRIN 81 MG ENTERIC TABLET PO ONE (12:17)
[2024-11-24] MEDS: MAALOX 30 ML SUSP *UDC PO PRN (12:17)
[2024-11-24 20:00] VITALS: BP 114/55; TEMP 98.1; O2SAT 94
[2024-11-25 04:00] VITALS: BP 111/58; TEMP 97.6; O2SAT 94
[2024-11-25] MEDS: ASPIRIN 81 MG ENTERIC TABLET PO SCH (08:13)
[2024-11-25] MEDS: FERROUS GLUCONATE 324 MG TAB PO SCH (08:13)
[2024-11-25 12:00] VITALS: BP 133/81; TEMP 98.1; O2SAT 90
[2024-11-25 20:00] VITALS: BP 122/89; TEMP 97.5; O2SAT 96
[2024-11-26 04:00] VITALS: BP 139/63; TEMP 97.2; O2SAT 94
[2024-11-26 08:05] VITALS: BP 130/59
[2024-11-26 12:24] VITALS: BP 127/90; TEMP 97.7; O2SAT 93
[2024-11-26 20:00] VITALS: BP 137/67; TEMP 97.7; O2SAT 96
[2024-11-27 04:00] VITALS: BP 123/63; TEMP 97.1; O2SAT 94
[2024-11-27 12:00] VITALS: BP 165/77; TEMP 97.7; O2SAT 96
[2024-11-27 20:22] VITALS: BP 100/56; TEMP 97.2; O2SAT 92
[2024-11-28 03:27] VITALS: BP 156/73; TEMP 97.2; O2SAT 97
[2024-11-28 12:00] VITALS: BP 136/64; TEMP 97.8; O2SAT 93
[2024-11-28 20:30] VITALS: BP 147/67; TEMP 97.7; O2SAT 98
[2024-11-29 03:50] VITALS: BP 134/68; TEMP 97.3; O2SAT 94
[2024-11-29 12:00] VITALS: BP 131/61; TEMP 97.9; O2SAT 93
[2024-11-29 20:00] VITALS: BP 121/60; TEMP 97.6; O2SAT 99
[2024-11-30 04:00] VITALS: BP 111/63; TEMP 97.2; O2SAT 95
[2024-11-30 07:30] LABS: BASO # 0.1 10^3/uL (0.0-0.2); BASO % 0.8 % (0.0-1.0); EOS # 1.0 10^3/uL (0.0-0.5); EOS % 11.4 % (0.0-3.0); LYMPH # 2.2 10^3/uL (1.5-5.0); LYMPH % 26.1 % (24.0-44.0); MONO # 0.7 10^3/uL (0.0-0.8); MONO % 8.8 % (2.0-8.0); NEUTROPHILS # 4.3 10^3/uL (1.5-8.5); NEUTROPHILS % 52.2 % (36.0-66.0); PLATELET COUNT, AUTOMATED 398 10^3/uL (150-450)
[2024-11-30 08:04] LABS: CALCIUM LEVEL 8.7 MG/DL (8.3-10.6); CARBON DIOXIDE LEVEL 30 MMOL/L (20-31); CHLORIDE LEVEL 100 MMOL/L (98-107); CREATININE FOR GFR 0.62 MG/DL (0.55-1.30); GLOMERULAR FILTRATION RATE > 90.0 (>39); POTASSIUM SERUM 4.2 MMOL/L (3.5-5.1); SODIUM LEVEL 139 MMOL/L (136-145)
[2024-11-30 12:00] VITALS: BP 131/69; TEMP 96.8; O2SAT 94
[2024-11-30 20:00] VITALS: BP 122/58; TEMP 97; O2SAT 98
[2024-11-30] MEDS: RAMELTEON 8 MG TAB PO PRN (20:56)
[2024-12-01 04:00] VITALS: BP 121/60; TEMP 99.2; O2SAT 98
[2024-12-01] MEDS: hydroCHLOROthiazide 25 MG TAB PO SCH (09:17)
[2024-12-01 12:00] VITALS: BP 119/59; TEMP 98.2; O2SAT 93
[2024-12-01 20:00] VITALS: BP 114/59; TEMP 97.3; O2SAT 94
[2024-12-01] MEDS: BISACODYL 5 MG TAB PO PRN (20:32)
[2024-12-01] MEDS: APIXABAN 5 MG TAB PO SCH (20:33)
[2024-12-02 04:00] VITALS: BP 110/58; TEMP 96.7; O2SAT 94
[2024-12-02] MEDS: PANTOPRAZOLE 40MG TAB PO SCH (07:45)
[2024-12-02 07:52] LABS: BASO # 0.1 10^3/uL (0.0-0.2); BASO % 0.9 % (0.0-1.0); EOS # 0.7 10^3/uL (0.0-0.5); EOS % 8.0 % (0.0-3.0); LYMPH # 1.8 10^3/uL (1.5-5.0); LYMPH % 19.6 % (24.0-44.0); MONO # 0.7 10^3/uL (0.0-0.8); MONO % 8.0 % (2.0-8.0); NEUTROPHILS # 5.6 10^3/uL (1.5-8.5); NEUTROPHILS % 62.8 % (36.0-66.0); PLATELET COUNT, AUTOMATED 447 10^3/uL (150-450)
[2024-12-02 08:25] LABS: CALCIUM LEVEL 8.4 MG/DL (8.3-10.6); CARBON DIOXIDE LEVEL 29.0 MMOL/L (20-31); CHLORIDE LEVEL 101.0 MMOL/L (98-107); CREATININE FOR GFR 0.66 MG/DL (0.55-1.30); GLOMERULAR FILTRATION RATE 89.2 (>39); POTASSIUM SERUM 4.6 MMOL/L (3.5-5.1); SODIUM LEVEL 139.0 MMOL/L (136-145)
[2024-12-02] MEDS: BISACODYL 10 MG SUPP PR PRN (08:55)
[2024-12-02] MEDS: MOM 30 ML SUSPENSION UDC PO PRN (10:20)
[2024-12-02 12:00] VITALS: BP 115/61; TEMP 97.3; O2SAT 93
[2024-12-02] MEDS: PREPARATION H SUPP (HEMORRHOID) PR SCH (14:18)
[2024-12-02 15:20] LABS: BASO # 0.1 10^3/uL (0.0-0.2); BASO % 0.3 % (0.0-1.0); EOS # 0.1 10^3/uL (0.0-0.5); EOS % 0.8 % (0.0-3.0); LYMPH # 1.4 10^3/uL (1.5-5.0); LYMPH % 9.0 % (24.0-44.0); MONO # 1.1 10^3/uL (0.0-0.8); MONO % 7.5 % (2.0-8.0); NEUTROPHILS # 12.2 10^3/uL (1.5-8.5); NEUTROPHILS % 81.9 % (36.0-66.0); PLATELET COUNT, AUTOMATED 425 10^3/uL (150-450)
[2024-12-02 20:00] VITALS: BP 111/59; TEMP 99.9; O2SAT 95
[2024-12-02] MEDS: DOCUSATE SODIUM 100 MG CAPSULE PO SCH (20:32)
[2024-12-02 21:56] LABS: APPEARANCE, URINE CLEAR (CLEAR); BACTERIA, URINE AUTO NEGATIVE (NEGATIVE); BILIRUBIN, URINE AUTO NEGATIVE (NEGATIVE); BLOOD, URINE BLOOD NEGATIVE (NEGATIVE); GLUCOSE, URINE (UA) AUTO NEGATIVE (NEGATIVE); KETONE, URINE AUTO NEGATIVE (NEGATIVE); LEUKOCYTE ESTERASE, URINE AUTO TRACE (NEGATIVE); MUCUS, URINE SMALL (NEGATIVE); NITRITE, URINE AUTO NEGATIVE (NEGATIVE); PROTEIN, URINE AUTO NEGATIVE (NEGATIVE); RBC, URINE AUTO 4 /HPF (0-3); SPECIFIC GRAVITY URINE AUTO 1.021 (1.002-1.035); SQUAMOUS EPITHELIAL CELL UR AU 1 /HPF (0-6); UROBILINOGEN, URINE AUTO 2.0 mg/dL (0.0-2.0); WBC, URINE AUTO 6 /HPF (0-3)
[2024-12-03 04:00] VITALS: BP 123/58; TEMP 98.6; O2SAT 94
[2024-12-03 06:19] LABS: BASO # 0.1 10^3/uL (0.0-0.2); BASO % 0.8 % (0.0-1.0); EOS # 0.7 10^3/uL (0.0-0.5); EOS % 7.4 % (0.0-3.0); LYMPH # 1.9 10^3/uL (1.5-5.0); LYMPH % 19.5 % (24.0-44.0); MONO # 0.8 10^3/uL (0.0-0.8); MONO % 8.0 % (2.0-8.0); NEUTROPHILS # 6.1 10^3/uL (1.5-8.5); NEUTROPHILS % 63.8 % (36.0-66.0); PLATELET COUNT, AUTOMATED 417 10^3/uL (150-450)
[2024-12-03] MEDS: BISACODYL 5 MG TAB PO SCH (07:39)
[2024-12-03 12:00] VITALS: BP 120/60; TEMP 97; O2SAT 92
[2024-12-03 20:00] VITALS: BP 121/56; TEMP 97.2; O2SAT 94
[2024-12-04 04:00] VITALS: BP 104/50; TEMP 97.6; O2SAT 94
[2024-12-04 07:24] LABS: BASO # 0.1 10^3/uL (0.0-0.2); BASO % 0.7 % (0.0-1.0); EOS # 0.8 10^3/uL (0.0-0.5); EOS % 6.4 % (0.0-3.0); LYMPH # 2.9 10^3/uL (1.5-5.0); LYMPH % 25.1 % (24.0-44.0); MONO # 0.9 10^3/uL (0.0-0.8); MONO % 7.9 % (2.0-8.0); NEUTROPHILS # 7.0 10^3/uL (1.5-8.5); NEUTROPHILS % 59.4 % (36.0-66.0); PLATELET COUNT, AUTOMATED 448 10^3/uL (150-450)
[2024-12-04 12:00] VITALS: BP 116/58; TEMP 98.1; O2SAT 96
[2024-12-04 20:00] VITALS: BP 118/57; TEMP 97.3; O2SAT 97
[2024-12-05 04:00] VITALS: BP 127/62; TEMP 97.2; O2SAT 94
[2024-12-05 07:10] LABS: BASO # 0.1 10^3/uL (0.0-0.2); BASO % 0.8 % (0.0-1.0); EOS # 0.8 10^3/uL (0.0-0.5); EOS % 7.6 % (0.0-3.0); LYMPH # 3.2 10^3/uL (1.5-5.0); LYMPH % 28.8 % (24.0-44.0); MONO # 0.9 10^3/uL (0.0-0.8); MONO % 8.0 % (2.0-8.0); NEUTROPHILS # 6.1 10^3/uL (1.5-8.5); NEUTROPHILS % 54.4 % (36.0-66.0); PLATELET COUNT, AUTOMATED 479 10^3/uL (150-450)
[2024-12-05 08:51] VITALS: BP 110/54; TEMP 97.5; O2SAT 95
[2024-12-05 12:00] VITALS: BP 144/73; TEMP 97.1; O2SAT 95
[2024-12-05 20:00] VITALS: BP 121/56; TEMP 97.6; O2SAT 96
[2024-12-06 05:28] VITALS: BP 133/62; TEMP 97.3; O2SAT 97
[2024-12-06 05:54] LABS: BASO # 0.1 10^3/uL (0.0-0.2); BASO % 0.9 % (0.0-1.0); EOS # 0.7 10^3/uL (0.0-0.5); EOS % 6.9 % (0.0-3.0); LYMPH # 3.0 10^3/uL (1.5-5.0); LYMPH % 30.8 % (24.0-44.0); MONO # 1.0 10^3/uL (0.0-0.8); MONO % 10.0 % (2.0-8.0); NEUTROPHILS # 5.0 10^3/uL (1.5-8.5); NEUTROPHILS % 51.0 % (36.0-66.0); PLATELET COUNT, AUTOMATED 459 10^3/uL (150-450)
[2024-12-06 08:09] VITALS: BP 133/62
[2024-12-06] MEDS ORDERED: POTA1TAB23 PO (09:38)
[2024-12-06] MEDS ORDERED: OMEP-173 PO (09:38)
[2024-12-06] MEDS ORDERED: HYDR-3490 PO (09:38)
[2024-12-06] MEDS ORDERED: ELIQ5TAB PO (09:38)
[2024-12-06] MEDS ORDERED: LEXA1TAB PO (09:38)
[2024-12-06] MEDS ORDERED: TRAZ-252 PO (09:38)
[2024-12-06] MEDS ORDERED: OXYC-517 PO (09:38)
[2024-12-06] MEDS ORDERED: LEVO75TA4 PO (09:38)
[2024-12-06 12:00] VITALS: TEMP 96.4; O2SAT 96
[2024-12-08] MEDS ORDERED: APIXABAN 5 MG TAB PO SCH (09:00)
== END 2024-12-06 13:45 | disposition home health service (06) | DRG 560 ==
LOC: M PM&R 14:40
PROVIDERS: ADMIT Physical Medicine & Rehabilitation; ATTEND Physical Medicine & Rehabilitation
DX: S72.141D Displaced intertrochanteric fracture of right femur, subsequent encounter for closed fracture with routine healing (principal); D62 Acute posthemorrhagic anemia; I10 Essential (primary) hypertension; J44.9 Chronic obstructive pulmonary disease, unspecified; F32.A Depression, unspecified; E87.6 Hypokalemia; E03.9 Hypothyroidism, unspecified; G47.00 Insomnia, unspecified; E55.9 Vitamin D deficiency, unspecified; K64.9 Unspecified hemorrhoids; S52.501D Unspecified fracture of the lower end of right radius, subsequent encounter for closed fracture with routine healing; M79.89 Other specified soft tissue disorders; K59.00 Constipation, unspecified; M85.80 Other specified disorders of bone density and structure, unspecified site; Z74.09 Other reduced mobility; Z74.1 Need for assistance with personal care; Z98.84 Bariatric surgery status; Z90.49 Acquired absence of other specified parts of digestive tract; Z98.41 Cataract extraction status, right eye; Z98.42 Cataract extraction status, left eye; Z79.890 Hormone replacement therapy; Z91.048 Other nonmedicinal substance allergy status; Z79.82 Long term (current) use of aspirin; Z79.899 Other long term (current) drug therapy

== ENCOUNTER → 2024-12-15 | Outpatient (REF) | payer BC, MEDICARE ==
[~2024-12-15] MED LIST changes: +ECOT81TA5 PO; +ELIQ5TAB PO; +HYDR-3490 PO; +OMEP-173 PO; +OXYC-517 PO
[2024-12-15 18:01] LABS: IRON (FE) 56.0 UG/DL (50-170); PERCENT SATURATION 21.2 % (13.2-45.0)
== END ==
LOC: M LAB REF 17:25
PROVIDERS: ATTEND Physician Assistant Medical
DX: D50.9 Iron deficiency anemia, unspecified (principal)

== ENCOUNTER → 2024-12-16 | Outpatient (CLI) | payer BC, MEDICARE ==
[~2024-12-16] MED LIST changes: +BACIOIN5 OP
== END ==
LOC: M SOG 07:22
PROVIDERS: ATTEND Physician Assistant
DX: S52.501D Unspecified fracture of the lower end of right radius, subsequent encounter for closed fracture with routine healing (principal); S72.141D Displaced intertrochanteric fracture of right femur, subsequent encounter for closed fracture with routine healing

== ENCOUNTER → 2024-12-30 | Outpatient (CLI) | payer MEDICARE, BC | LOC: M SOG 07:42 | PROVIDERS: ATTEND Physician Assistant | DX: S52.501D Unspecified fracture of the lower end of right radius, subsequent encounter for closed fracture with routine healing (principal); X58.XXXD Exposure to other specified factors, subsequent encounter; Y92.9 Unspecified place or not applicable; Y93.9 Activity, unspecified; Y99.9 Unspecified external cause status ==

== ENCOUNTER 2024-12-31 11:34 | Emergency (ER) | payer MEDICARE, BC ==
[~2024-12-31] VITALS: Ht 162.6 cm; Wt 65.7 kg
[~2024-12-31 11:34] MED LIST changes: -BACIOIN5 OP
[2024-12-31] MEDS: TETANUS/DIPHTH/ACEL. PERTUSSIS 0.5 ML SYR IM.IMMUN ONE (12:42)
[2024-12-31] MEDS ORDERED: BACIOIN5 OP (13:53)
[2024-12-31 14:15] VITALS: BP 139/69
[2024-12-31 14:19] VITALS: O2SAT 98
[2024-12-31] MEDS: LIDOCAINE 2% W/EPINEPHrine 20 ML VIAL **PRES FREE INJ ONE (14:20)
[2024-12-31 14:53] VITALS: TEMP 99.4
== END 2024-12-31 15:08 | disposition home or self-care (01) ==
LOC: M ED 11:34
DX: S01.81XA Laceration without foreign body of other part of head, initial encounter (principal); S80.02XA Contusion of left knee, initial encounter; S06.0X0A Concussion without loss of consciousness, initial encounter; Y92.511 Restaurant or cafe as the place of occurrence of the external cause; Y93.9 Activity, unspecified; Y99.9 Unspecified external cause status; W01.0XXA Fall on same level from slipping, tripping and stumbling without subsequent striking against object, initial encounter; J44.9 Chronic obstructive pulmonary disease, unspecified; E03.9 Hypothyroidism, unspecified; N20.0 Calculus of kidney; Z86.718 Personal history of other venous thrombosis and embolism; Z23 Encounter for immunization; Z91.048 Other nonmedicinal substance allergy status; Z79.01 Long term (current) use of anticoagulants; Z79.2 Long term (current) use of antibiotics; Z79.51 Long term (current) use of inhaled steroids; Z79.899 Other long term (current) drug therapy; Z79.810 Long term (current) use of selective estrogen receptor modulators (SERMs)

== ENCOUNTER → 2025-01-27 | Outpatient (CLI) | payer BC, MEDICARE ==
[~2025-01-27] MED LIST changes: +BACIOIN5 OP
== END ==
LOC: M SOG 08:00
PROVIDERS: ATTEND Physician Assistant
DX: S72.141A Displaced intertrochanteric fracture of right femur, initial encounter for closed fracture (principal); Y93.9 Activity, unspecified; Y92.9 Unspecified place or not applicable